=== PATIENT | male | born 1940 | race Caucasian/White ===

== ENCOUNTER 2016-06-08 19:08 | Emergency (ER) | payer MEDICARE, BC ==
[2016-06-08] MEDS ORDERED: ALBUTEROL/IPRATROPIUM 1 VIAL SOL INH ONE (20:02)
[2016-06-08] MEDS ORDERED: SOLUMEDROL 125 MG/2 ML 125 MG/2 ML PDS IV ONE (20:03)
[2016-06-08] MEDS ORDERED: SOLUMEDROL 125 MG/2 ML 125 MG/2 ML PDS ONE (20:09)
[2016-06-08] MEDS ORDERED: ALBUTEROL/IPRATROPIUM 1 VIAL SOL ONE (20:09)
[2016-06-08] MEDS ORDERED: NAPROXEN 500 MG TAB ONE (20:30)
[2016-06-08] MEDS ORDERED: NAPROXEN 500 MG TAB PO ONE (20:30)
[2016-06-08 21:23] VITALS: BP 148/87; PULSE 73; RESP 20; O2SAT 96
[2016-06-08 21:25] VITALS: TEMP 98.8
== END 2016-06-08 20:51 | disposition home or self-care (01) | DRG 192 ==
LOC: ED 19:08
DX: J44.1 Chronic obstructive pulmonary disease with (acute) exacerbation (principal); J40 Bronchitis, not specified as acute or chronic; J44.0 Chronic obstructive pulmonary disease with (acute) lower respiratory infection
CPT/HCPCS: 99283; J2930; J7620

== ENCOUNTER 2017-03-13 11:23 | Emergency (ER) | payer MEDICARE, BC ==
[2017-03-13] MEDS ORDERED: ALBUTEROL/IPRATROPIUM 1 VIAL SOL ONE ×2 (11:32→13:24)
[2017-03-13] MEDS ORDERED: ACETAMINOPHEN 500 MG 500 MG TAB ONE (11:32)
[2017-03-13] MEDS ORDERED: SOLUMEDROL 125 MG/2 ML 125 MG/2 ML PDS ONE (11:32)
[2017-03-13] MEDS ORDERED: SOLUMEDROL 125 MG/2 ML 125 MG/2 ML PDS IV ONE (11:34)
[2017-03-13] MEDS ORDERED: ALBUTEROL/IPRATROPIUM 1 VIAL SOL INH ONE ×2 (11:34→13:23)
[2017-03-13] MEDS ORDERED: ACETAMINOPHEN 500 MG 500 MG TAB PO ONE (11:34)
[2017-03-13] MEDS: SODIUM CHLORIDE 0.9% FLUSH 10 ML SOL IV PRN ×2 (11:45→12:07)
[2017-03-13 11:56] LABS: BASOPHILS % (AUTO) 1 % (0-3); EOSINOPHILS % (AUTO) 1 % (0-9); HEMATOCRIT 42 % (39-53); MEAN CORPUSCULAR HGB CONC 34.5 gm/dl (32.0-36.0); MEAN CORPUSCULAR VOLUME 89 fL (80-100); MONOCYTES % (AUTO) 5.6 % (0-12); NEUTROPHILS % (AUTO) 85.4 % (37-80)
[2017-03-13] MEDS ORDERED: KETOROLAC TROMETHAMINE 30 MG/ML SOL IV ONE (12:01)
[2017-03-13] MEDS ORDERED: KETOROLAC TROMETHAMINE 30 MG/ML SOL ONE (12:02)
[2017-03-13 12:09] LABS: CALCIUM 8.5 mg/dl (8.5-10.1); POTASSIUM 3.8 mMol/L (3.5-5.1)
[2017-03-13] MEDS ORDERED: HYDROMORPHONE 1 MG/ML SYRINGE IV ONE (13:26)
[2017-03-13] MEDS ORDERED: HYDROMORPHONE 1 MG/ML SYRINGE ONE (13:28)
[2017-03-13 14:26] VITALS: BP 119/63; RESP 20
[2017-03-13 14:50] VITALS: PULSE 80
[2017-03-13 14:51] VITALS: TEMP 98.3; O2SAT 89
== END 2017-03-13 14:38 | disposition home or self-care (01) | DRG 153 ==
LOC: ED 11:23
DX: J11.1 Influenza due to unidentified influenza virus with other respiratory manifestations (principal)
CPT/HCPCS: 36415; 71045; 80048; 85025; 87040; 87804; 99291; J1885; J2930; J7620; J1170

== ENCOUNTER 2017-03-19 08:17 | Inpatient (IN) | payer MEDICARE, BC ==
[2017-03-19 08:45] LABS: BASOPHILS % (AUTO) 1 % (0-3); EOSINOPHILS % (AUTO) 3 % (0-9); HEMATOCRIT 40 % (39-53); MEAN CORPUSCULAR HGB CONC 34.4 gm/dl (32.0-36.0); MEAN CORPUSCULAR VOLUME 87 fL (80-100); MONOCYTES % (AUTO) 11.4 % (0-12); NEUTROPHILS % (AUTO) 70.3 % (37-80)
[2017-03-19 09:03] LABS: ALT 30 IU/L (14-63); CALCIUM 8.8 mg/dl (8.5-10.1); GLOM FILT RATE 46 mL/min (>60); POTASSIUM 3.6 mMol/L (3.5-5.1); SODIUM 135 mMol/L (136-145)
[2017-03-19] MEDS ORDERED: ALBUTEROL/IPRATROPIUM 1 VIAL SOL INH ONE (09:57)
[2017-03-19] MEDS ORDERED: ALBUTEROL/IPRATROPIUM 1 VIAL SOL ONE (09:59)
[2017-03-19] MEDS: SODIUM CHLORIDE 0.9% 1000ML 1,000 ML IV SCH ×3 (10:45→12:47)
[2017-03-19] MEDS ORDERED: APAP/HYDROCODONE 325/5 TAB PO ONE (11:55)
[2017-03-19] MEDS ORDERED: APAP/HYDROCODONE 325/5 TAB ONE (11:57)
[2017-03-19] MEDS ORDERED: SOLUMEDROL 125 MG/2 ML 125 MG/2 ML PDS IV ONE (13:10)
[2017-03-19] MEDS ORDERED: SOLUMEDROL 125 MG/2 ML 125 MG/2 ML PDS ONE (13:14)
[2017-03-19] MEDS ORDERED: CODEINE/GUAIFENESIN 5 ML ML ONE (13:36)
[2017-03-19] MEDS: CODEINE/GUAIFENESIN 5 ML ML PO PRN ×2 (13:37→22:18)
[2017-03-19] MEDS ORDERED: ALBUTEROL NEB SOL 2.5MG/3ML 1 VIAL SOL NEB PRN (15:11)
[2017-03-19] MEDS: ALBUTEROL/IPRATROPIUM 1 VIAL SOL INH SCH ×2 (17:03→22:16)
[2017-03-19] MEDS ORDERED: APAP/HYDROCODONE 325/5 TAB PO PRN (19:13)
[2017-03-19] MEDS: SODIUM CHLORIDE 0.9% FLUSH 10 ML SOL IV SCH (22:16)
[2017-03-20] MEDS: CODEINE/GUAIFENESIN 5 ML ML PO PRN ×2 (03:33→21:26)
[2017-03-20 07:41] LABS: CALCIUM 8.7 mg/dl (8.5-10.1); POTASSIUM 3.8 mMol/L (3.5-5.1)
[2017-03-20] MEDS ORDERED: ACETAMINOPHEN 325 MG ONE (09:08)
[2017-03-20] MEDS: ACETAMINOPHEN 325 MG PO PRN (09:13)
[2017-03-20] MEDS: SODIUM CHLORIDE 0.9% FLUSH 10 ML SOL IV SCH ×2 (09:14→17:32)
[2017-03-20] MEDS: ALBUTEROL/IPRATROPIUM 1 VIAL SOL INH SCH ×4 (09:29→21:31)
[2017-03-20] MEDS: LOSARTAN POTASSIUM 50 MG TAB PO SCH (09:32)
[2017-03-20] MEDS: ASPIRIN 81 MG CHEWABLE CTB PO SCH (09:33)
[2017-03-20] MEDS ORDERED: SODIUM CHLORIDE 0.9% 500 ML 500 ML IV ONE (12:30)
[2017-03-21] MEDS: SODIUM CHLORIDE 0.9% FLUSH 10 ML SOL IV SCH ×3 (05:00→17:47)
[2017-03-21] MEDS: ASPIRIN 81 MG CHEWABLE CTB PO SCH (08:05)
[2017-03-21] MEDS: CHLORTHALIDONE 25 MG TAB PO SCH (08:06)
[2017-03-21] MEDS: LOSARTAN POTASSIUM 50 MG TAB PO SCH (08:07)
[2017-03-21] MEDS: ALBUTEROL/IPRATROPIUM 1 VIAL SOL INH SCH ×4 (08:08→20:42)
[2017-03-21 10:19] LABS: BASOPHILS % (AUTO) 0 % (0-3); EOSINOPHILS % (AUTO) 0 % (0-9); HEMATOCRIT 37 % (39-53); MEAN CORPUSCULAR HGB CONC 34.3 gm/dl (32.0-36.0); MEAN CORPUSCULAR VOLUME 88 fL (80-100); MONOCYTES % (AUTO) 5.6 % (0-12); NEUTROPHILS % (AUTO) 80.3 % (37-80)
[2017-03-21 10:27] LABS: CALCIUM 8.7 mg/dl (8.5-10.1); POTASSIUM 3.5 mMol/L (3.5-5.1)
[2017-03-21] MEDS: LEVOFLOXACIN 500 MG TAB PO SCH (15:02)
[2017-03-21] MEDS: ENOXAPARIN 40 MG SOL SC SCH (16:12)
[2017-03-21] MEDS: SOLUMEDROL 125 MG/2 ML 125 MG/2 ML PDS IV SCH (17:47)
[2017-03-21] MEDS: TEMAZEPAM 15MG 15 MG CAP PO PRN (20:42)
[2017-03-21] MEDS: POLYETHYLENE GLYCOL 17 GM/1 TBS PDS PO PRN (20:59)
[2017-03-22] MEDS: SOLUMEDROL 125 MG/2 ML 125 MG/2 ML PDS IV SCH ×4 (00:35→18:47)
[2017-03-22] MEDS: SODIUM CHLORIDE 0.9% FLUSH 10 ML SOL IV SCH ×5 (00:36→18:49)
[2017-03-22] MEDS: TEMAZEPAM 15MG 15 MG CAP PO PRN ×2 (00:40→21:29)
[2017-03-22 07:39] LABS: BASOPHILS % (AUTO) 0 % (0-3); EOSINOPHILS % (AUTO) 0 % (0-9); HEMATOCRIT 37 % (39-53); MEAN CORPUSCULAR VOLUME 88 fL (80-100); MONOCYTES % (AUTO) 2.2 % (0-12); NEUTROPHILS % (AUTO) 91.2 % (37-80)
[2017-03-22 07:50] LABS: CALCIUM 8.8 mg/dl (8.5-10.1)
[2017-03-22 08:07] LABS: POTASSIUM 3.6 mMol/L (3.5-5.1)
[2017-03-22] MEDS: LOSARTAN POTASSIUM 50 MG TAB PO SCH (08:23)
[2017-03-22] MEDS: ASPIRIN 81 MG CHEWABLE CTB PO SCH (08:23)
[2017-03-22] MEDS: LEVOFLOXACIN 500 MG TAB PO SCH ×2 (08:24→14:30)
[2017-03-22] MEDS: CHLORTHALIDONE 25 MG TAB PO SCH (08:25)
[2017-03-22] MEDS: ALBUTEROL/IPRATROPIUM 1 VIAL SOL INH SCH ×4 (08:27→21:29)
[2017-03-22] MEDS: ACETAMINOPHEN 325 MG PO PRN (08:43)
[2017-03-22] MEDS ORDERED: MAGNESIUM CITRATE SOL PO PRN (08:56)
[2017-03-22] MEDS: POLYETHYLENE GLYCOL 17 GM/1 TBS PDS PO PRN (08:59)
[2017-03-22] MEDS ORDERED: LEVOFLOXACIN 500 MG TAB PO SCH (09:00)
[2017-03-22] MEDS ORDERED: PREDNISONE 20 MG TAB PO SCH (09:00)
[2017-03-22] MEDS: IBUPROFEN 400 MG TAB PO PRN (13:17)
[2017-03-22] MEDS: ENOXAPARIN 40 MG SOL SC SCH (16:32)
[2017-03-23] MEDS: SODIUM CHLORIDE 0.9% FLUSH 10 ML SOL IV SCH ×3 (00:12→17:13)
[2017-03-23] MEDS: SOLUMEDROL 125 MG/2 ML 125 MG/2 ML PDS IV SCH ×2 (00:12→05:57)
[2017-03-23 07:24] LABS: HEMATOCRIT 41 % (39-53); MEAN CORPUSCULAR HGB CONC 34.8 gm/dl (32.0-36.0); MEAN CORPUSCULAR VOLUME 88 fL (80-100)
[2017-03-23 07:28] LABS: CALCIUM 9.5 mg/dl (8.5-10.1); POTASSIUM 3.8 mMol/L (3.5-5.1)
[2017-03-23 07:47] LABS: BASOPHILS % (MANUAL) 0 % (0-3); EOSINOPHILS % (MANUAL) 0 % (0-9); LYMPHOCYTES % (MANUAL) 8 % (10-50); NORMAL RBCS PRESENT
[2017-03-23] MEDS: ALBUTEROL/IPRATROPIUM 1 VIAL SOL INH SCH ×4 (08:15→21:54)
[2017-03-23] MEDS: ASPIRIN 81 MG CHEWABLE CTB PO SCH (08:30)
[2017-03-23] MEDS: CHLORTHALIDONE 25 MG TAB PO SCH (08:30)
[2017-03-23] MEDS: LOSARTAN POTASSIUM 50 MG TAB PO SCH (08:30)
[2017-03-23] MEDS: LEVOFLOXACIN 500 MG TAB PO SCH (08:32)
[2017-03-23] MEDS: PREDNISONE 20 MG TAB PO SCH (09:34)
[2017-03-23] MEDS: ENOXAPARIN 40 MG SOL SC SCH (16:01)
[2017-03-23] MEDS: TEMAZEPAM 15MG 15 MG CAP PO PRN (21:54)
[2017-03-24] MEDS: LEVOFLOXACIN 500 MG TAB PO SCH (08:53)
[2017-03-24] MEDS: PREDNISONE 20 MG TAB PO SCH (08:53)
[2017-03-24] MEDS: ASPIRIN 81 MG CHEWABLE CTB PO SCH (08:54)
[2017-03-24] MEDS: LOSARTAN POTASSIUM 50 MG TAB PO SCH (08:54)
[2017-03-24] MEDS: CHLORTHALIDONE 25 MG TAB PO SCH (08:55)
[2017-03-24] MEDS: ALBUTEROL/IPRATROPIUM 1 VIAL SOL INH SCH ×4 (09:07→21:36)
[2017-03-24 10:19] LABS: BASOPHILS % (AUTO) 1 % (0-3); EOSINOPHILS % (AUTO) 0 % (0-9); HEMATOCRIT 41 % (39-53); MEAN CORPUSCULAR HGB CONC 33.1 gm/dl (32.0-36.0); MEAN CORPUSCULAR VOLUME 89 fL (80-100); MONOCYTES % (AUTO) 5.7 % (0-12); NEUTROPHILS % (AUTO) 72.2 % (37-80)
[2017-03-24 10:26] LABS: CALCIUM 9.5 mg/dl (8.5-10.1); POTASSIUM 3.4 mMol/L (3.5-5.1)
[2017-03-24] MEDS: ENOXAPARIN 40 MG SOL SC SCH (15:05)
[2017-03-24] MEDS: IBUPROFEN 400 MG TAB PO PRN (21:33)
[2017-03-24] MEDS: POLYETHYLENE GLYCOL 17 GM/1 TBS PDS PO PRN (21:34)
[2017-03-24 21:43] VITALS: RESP 16
[2017-03-25 07:17] LABS: BASOPHILS % (AUTO) 1 % (0-3); EOSINOPHILS % (AUTO) 0 % (0-9); HEMATOCRIT 39 % (39-53); MEAN CORPUSCULAR HGB CONC 33.3 gm/dl (32.0-36.0); MEAN CORPUSCULAR VOLUME 88 fL (80-100); MONOCYTES % (AUTO) 7.9 % (0-12); NEUTROPHILS % (AUTO) 66.6 % (37-80)
[2017-03-25 07:21] LABS: CALCIUM 8.9 mg/dl (8.5-10.1); POTASSIUM 3.5 mMol/L (3.5-5.1)
[2017-03-25] MEDS: ASPIRIN 81 MG CHEWABLE CTB PO SCH (09:15)
[2017-03-25] MEDS: LOSARTAN POTASSIUM 50 MG TAB PO SCH (09:15)
[2017-03-25] MEDS: LEVOFLOXACIN 500 MG TAB PO SCH (09:16)
[2017-03-25] MEDS: CHLORTHALIDONE 25 MG TAB PO SCH (09:16)
[2017-03-25] MEDS: PREDNISONE 20 MG TAB PO SCH (09:16)
[2017-03-25] MEDS: ALBUTEROL/IPRATROPIUM 1 VIAL SOL INH SCH (09:18)
[2017-03-25 09:23] VITALS: BP 135/80; PULSE 72; TEMP 97.1; O2SAT 97
== END 2017-03-25 10:45 | disposition home or self-care (01) | DRG 153 ==
LOC: ED 08:17 → UNDOADMIN 13:21 → ACUTE CARE 13:21
PROVIDERS: ADMIT Family Medicine; ATTEND Family Medicine
DX: J11.1 Influenza due to unidentified influenza virus with other respiratory manifestations (principal); R06.02 Shortness of breath; R07.9 Chest pain, unspecified; I10 Essential (primary) hypertension; R09.02 Hypoxemia; R79.89 Other specified abnormal findings of blood chemistry; R00.0 Tachycardia, unspecified; J18.9 Pneumonia, unspecified organism; Z72.0 Tobacco use
CPT/HCPCS: 36415; 71046; 71275; 80048; 80053; 83880; 84484; 85007; 85025; 85027; 85378; 93005; 93012; 94150; 94640; 94664; 96365; 96374; 99284; 99285; J1650; J2930; J7603; Q9967; A9270-GY

== ENCOUNTER 2017-04-03 19:48 | Emergency (ER) | payer MEDICARE, BC ==
[2017-04-03] MEDS ORDERED: ADENOSINE 3 MG/ML SOL IV PRN (20:07)
[2017-04-03] MEDS ORDERED: ADENOSINE 3 MG/ML SOL IV ONE ×2 (20:07→20:17)
[2017-04-03] MEDS: SODIUM CHLORIDE 0.9% FLUSH 10 ML SOL IV PRN ×2 (20:07→20:14)
[2017-04-03] MEDS ORDERED: NITROGLYCERIN 0.4 MG TAB SL PRN (20:29)
[2017-04-03] MEDS ORDERED: ASPIRIN 81 MG CHEWABLE CTB PO STA (20:29)
[2017-04-03] MEDS ORDERED: SODIUM CHLORIDE 0.9% FLUSH 10 ML SOL IV PRN (20:29)
[2017-04-03 20:39] LABS: ALBUMIN 3.1 gm/dl (3.4-5.0); ALT 19 IU/L (14-63); BASOPHILS % (AUTO) 1 % (0-3); CALCIUM 8.4 mg/dl (8.5-10.1); EOSINOPHILS % (AUTO) 1 % (0-9); GLOM FILT RATE 54 mL/min (>60); HEMATOCRIT 43 % (39-53); MEAN CORPUSCULAR HGB CONC 33.7 gm/dl (32.0-36.0); MEAN CORPUSCULAR VOLUME 88 fL (80-100); MONOCYTES % (AUTO) 6.7 % (0-12); NEUTROPHILS % (AUTO) 77.2 % (37-80); POTASSIUM 3.6 mMol/L (3.5-5.1); SODIUM 138 mMol/L (136-145)
[2017-04-03] MEDS ORDERED: POTASSIUM CHLORIDE 10 MEQ TER PO ONE (20:41)
[2017-04-03] MEDS ORDERED: POTASSIUM CHLORIDE 10 MEQ TER ONE (20:52)
[2017-04-03 20:55] VITALS: TEMP 99
[2017-04-03 21:19] VITALS: BP 113/79; PULSE 95; RESP 17; O2SAT 95
== END 2017-04-03 21:20 | disposition home or self-care (01) | DRG 310 ==
LOC: ED 19:48
DX: I47.1 Supraventricular tachycardia (principal)
CPT/HCPCS: 71045; 80053; 84484; 85025; 93005; 99285; J0153; A9270-GY